=== PATIENT | female | born 2000 | race Caucasian/White ===

== ENCOUNTER → 2021-08-02 16:55 | Outpatient (BNVA) | payer OTHER, SELFPAY | PROVIDERS: Family Provider Family Medicine; PCP Family Medicine; Visit Provider Nurse Practitioner | DX: Z34.90 Encounter for supervision of normal pregnancy, unspecified, unspecified trimester (principal) | CPT/HCPCS: 81025 ==

== ENCOUNTER 2021-08-26 10:29 | Outpatient (CLI) | payer OTHER, MEDICAID, SELFPAY ==
--- NOTE | 2021-08-26 | US_ITS ---
WS: [id number] ULTRASOUND EARLY TECHNIQUE: Transabdominal sonography of the pelvis was performed. Followed by transvaginal sonography to better evaluate the uterus and ovaries. CLINICAL INFORMATION: DATING US LMP: ? Beta hCG: Unknown. COMPARISON: None. FINDINGS: Cervix measures 3.9 cm UTERUS AND GESTATIONAL SAC Intrauterine gestations: Single intrauterine gestation with pole. Gestational sac measures 2.6 cm. Estimated gestational age: 7 weeks 4 days Estimated delivery April 10, 2022 Yolk sac: Present [place] rump length (CRL): 1.3 cm. heart motion: 143 BPM. Subchorionic hemorrhage: None. OVARIES Right ovary: Normal. Left ovary: Normal. FREE FLUID None. US/US OB <=14 wk fetus w transvag IMPRESSION: 1. Single live intrauterine with pole. 2. Estimated gestational age 7 weeks 4 days. 3. Cardiac activity and movement visualized. 4. Normal adnexa.
== END 2021-08-26 10:30 | disposition home or self-care (01) ==
PROVIDERS: PCP Family Medicine; Visit Provider Family Medicine
DX: Z34.01 Encounter for supervision of normal first pregnancy, first trimester (principal); Z3A.01 Less than 8 weeks gestation of pregnancy

== ENCOUNTER → 2021-11-19 15:23 | Outpatient (BNVA) | payer MEDICAID, SELFPAY | PROVIDERS: PCP Family Medicine; Visit Provider Family Medicine | DX: Z34.90 Encounter for supervision of normal pregnancy, unspecified, unspecified trimester (principal) | CPT/HCPCS: 81511 ==

== ENCOUNTER 2021-11-23 13:35 | Outpatient (CLI) | payer MEDICAID, SELFPAY ==
--- NOTE | 2021-11-23 13:46 | US_ITS ---
WS: [id number] OBSTETRICAL ULTRASOUND COMPLETE HISTORY: ANATOMY COMPARISON: 08/26/2021 Single intrauterine gestation in Cephalic presentation. Cervix is Closed and normal length. Cervical length is 3.2 cm. Normal amount of amniotic fluid surrounds the fetus. Placenta: Anterior, no previa or abruption. Placenta grade 1 Heart: 160 BPM. Four chambers are identified. RIGHT and LEFT outflow tracts are unremarkable. Anatomy: Intracranial structures and spine are normal. kidneys are poorly visualized. Pro bably due to early gestational age and maternal body habitus. Stomach and urinary bladder well visual ized. In the midline of the abdomen is a rounded cystic structure without increased vascularity. On s everal of the images this does appear to connect to the umbilical cord and may be a urachal cyst. Abd ominal wall, three-vessel cord and cord insertion site are normal. 4 extremities are present. profile: Unremarkable. Gender: Female. measurements: BPD = 4.7 cm = 20w2d HC = 18.0 cm = 20w3d AC = 14.8 cm = 20w1d FL = 3.5 cm = 20w6d EFW: 354 g. Biometry is internally concordant. AGA by ultrasound: 20w2d MAI by ultrasound: 04/10/2022 US/US OB >= 14 weeks fetus [id number] IMPRESSION: 1. Single intrauterine gestation of 20w2d with an MAI of 04/10/2022. Appropria te growth since the first trimester ultrasound. 2. Midline abdominal cyst measures 8.6 x 8.8 mm. On several of the cine loop i mages this may connect to the umbilicus. There is no increased vascularity. Dif ferential includes urachal cyst, lymphangioma or duplication cyst. No definite connection to the kidneys identified at this time. 3. Neither kidney is well visualized. 4. Recommend further evaluation with maternal- medicine.
== END 2021-11-23 13:36 | disposition home or self-care (01) ==
LOC: RAD 13:38
PROVIDERS: PCP Family Medicine; Visit Provider Family Medicine
DX: Z36.89 Encounter for other specified antenatal screening (principal); Z3A.20 20 weeks gestation of pregnancy
CPT/HCPCS: 76805

== ENCOUNTER → 2021-12-29 10:05 | Outpatient (BNVA) | payer MEDICAID, SELFPAY | PROVIDERS: PCP Family Medicine; Visit Provider Family Medicine | DX: O13.9 Gestational [pregnancy-induced] hypertension without significant proteinuria, unspecified trimester (principal); R03.0 Elevated blood-pressure reading, without diagnosis of hypertension | CPT/HCPCS: 82570; 82950; 84156 ==

== ENCOUNTER 2021-12-30 19:30 | Outpatient (CLI) | payer MEDICAID, SELFPAY ==
[2021-12-30 19:38] VITALS: BP 131/66; PULSE 92
[2021-12-30 19:53] VITALS: BP 131/73; PULSE 96
[2021-12-30 20:01] VITALS: BMI 35.6
[2021-12-30 20:07] VITALS: RESP 15
[2021-12-30 20:08] VITALS: BP 118/65; PULSE 96
[2021-12-30 20:23] VITALS: BP 113/62; PULSE 93
[2021-12-30 20:26] LABS: Protein Urine Neg (Negative); Urine Appearance Clear (CLEAR); Urine Color Yellow (Yellow); pH Urine 7 (5-7)
[2021-12-30 20:31] LABS: Add Urine Culture? No; Amorphous Sediment Urine 1+ /hpf; Bilirubin Urine Neg (Negative); Blood Urine 3+ (Negative); Glucose Urine UA Norm (Normal); Ketones Urine Negative (Negative); Leukocyte Esterase Urine Trace (Negative); Nitrate Urine Negative (Negative); RBC Urine 80-100 /hpf (0-2); Squamous Epithelial Cell Urine 0-4 /hpf (0-5); Urobilinogen Urine Norm (Negative); WBC Urine 0-4 /hpf (0-5)
[2021-12-30 20:38] VITALS: BP 120/64; PULSE 91
== END 2021-12-30 20:55 | disposition home or self-care (01) ==
LOC: OPOB 19:36 → OBGYN 19:37
PROVIDERS: PCP Family Medicine; Visit Provider Family Medicine
DX: O13.2 Gestational [pregnancy-induced] hypertension without significant proteinuria, second trimester (principal); O26.892 Other specified pregnancy related conditions, second trimester; M54.9 Dorsalgia, unspecified; M79.606 Pain in leg, unspecified; Z3A.25 25 weeks gestation of pregnancy
CPT/HCPCS: 81001; 87086; 99211

== ENCOUNTER → 2022-01-05 16:29 | Outpatient (BNVA) | payer MEDICAID, SELFPAY | PROVIDERS: PCP Family Medicine; Visit Provider Family Medicine | DX: R30.0 Dysuria (principal); Z34.00 Encounter for supervision of normal first pregnancy, unspecified trimester; R31.9 Hematuria, unspecified | CPT/HCPCS: 81000 ==

== ENCOUNTER → 2022-01-25 15:12 | Outpatient (BNVA) | payer MEDICAID, SELFPAY | PROVIDERS: PCP Family Medicine; Visit Provider Family Medicine | DX: O13.9 Gestational [pregnancy-induced] hypertension without significant proteinuria, unspecified trimester; Z3A.00 Weeks of gestation of pregnancy not specified | CPT/HCPCS: 80053; 84550; 85025 ==

== ENCOUNTER → 2022-02-19 10:56 | Outpatient (BNVA) | payer MEDICAID, SELFPAY | PROVIDERS: PCP Family Medicine; Visit Provider Family Medicine | DX: O13.9 Gestational [pregnancy-induced] hypertension without significant proteinuria, unspecified trimester (principal) | CPT/HCPCS: 76819 ==

== ENCOUNTER → 2022-02-26 10:48 | Outpatient (BNVA) | payer MEDICAID, SELFPAY | PROVIDERS: PCP Family Medicine; Visit Provider Family Medicine | DX: O35.8XX0 Maternal care for other (suspected) fetal abnormality and damage, not applicable or unspecified (principal) | CPT/HCPCS: 76819 ==

== ENCOUNTER → 2022-03-05 11:06 | Outpatient (BNVA) | payer MEDICAID, SELFPAY | PROVIDERS: PCP Family Medicine; Visit Provider Family Medicine | DX: O28.3 Abnormal ultrasonic finding on antenatal screening of mother (principal) | CPT/HCPCS: 76819 ==

== ENCOUNTER → 2022-03-12 11:15 | Outpatient (BNVA) | payer MEDICAID, SELFPAY | PROVIDERS: PCP Family Medicine; Visit Provider Family Medicine | DX: O13.9 Gestational [pregnancy-induced] hypertension without significant proteinuria, unspecified trimester (principal) | CPT/HCPCS: 76819 ==

== ENCOUNTER 2022-03-16 16:19 | Inpatient (IN) | payer MEDICAID, SELFPAY ==
[2022-03-16] VITALS (16 sets, daily range): BP systolic 117–170; BP diastolic 57–88; PULSE 65–100; RESP 15; TEMP 36.7; BMI 35.4
[2022-03-16 14:09] LABS: Actim Prom Negative
[2022-03-16 17:56] LABS: Basophils % 0.2 %; Eosinophils # 0.1 10^3/uL (0.0-0.8); Eosinophils % 0.6 %; Hematocrit 37.3 % (37.0-47.0); Hemoglobin 12.2 g/dL (11.5-15.3); Lymphocytes # 1.7 10^3/uL (0.8-4.8); Lymphocytes % 13.8 %; Mean Corpuscular HGB Conc 32.7 g/dL (30.0-36.0); Mean Corpuscular Hemoglobin 29.4 pg (28.0-34.0); Mean Corpuscular Volume 89.9 fl (81-99); Mean Platelet Volume 11.1 fL (7.4-10.4); Monocytes # 0.4 10^3/uL (0.2-0.9); Monocytes % 3.4 %; Neutrophils # 10.16 10^3/uL (1.8-7.7); Neutrophils % 81.5 %; Nucleated Red Blood Cells % 0 %; Platelet Count 139 10^3/cmm (130-400); Red Blood Count 4.15 10^6/uL (4.1-5.3); Red Cell Distribution Width 14.4 % (12.1-15.1); White Blood Count 12.5 10^3/uL (4.0-10.0)
[2022-03-16 18:00] LABS: Slide Review Slide Review Perform
[2022-03-16] MEDS: miSOPROStol 100 mcg tablet 25 MCG VAGINAL (18:38)
[2022-03-16] MEDS: dextrose 5%-lactated ringers 1,000 ML 125 ML IV (18:38)
--- NOTE | 2022-03-16 18:45 | P.HP_ITS ---
Providers/Chief Complaint Admitting Physician: Michele Bolton MD Primary Care Provider: Antwon Grigsby MD Chief Complaint: Decreased JO History of Present Illness Nirali Spicer is a 21 year old @ 36.1 wks by 7 wk US inconsistent with LMP. Preg c/b h/o genital herpes in 2020, h/o cHTN, vaping in early TM now quit, mild anemia, left hydronephrosis - mild, now with oligohydramnios. The patient presented to labor and delivery triage on the afternoon of 022 secondary to having an ultrasound that showed an JO of 4.3. The rest of the biophysical profile was 8 out of 8. The NST has been reactive. Nitrazine and actin PROM were negative. We discussed the findings in detail and the recommendations for induction of labor after 36 weeks gestation when the JO is below 5. The patient was in agreement with proceeding for induction of labor. Review of Systems Narrative: The patient denies any chest pains, shortness of breath, diarrhea, constipation, leaks fluid, vaginal bleeding, dysuria, fevers, vaginal lesions. Medications/Allergies Home Medications Medication Instructions Recorded Confirmed Last Taken Type acetaminophen 325 mg tablet 500 mg PO QID 12/30/21 03/02/22 12/30/21 18:15 History (Tylenol) prenat.vits,justo,[id number] 1 tab PO DAILY 12/30/21 03/02/22 12/29/21 History acyclovir 400 mg tablet 400 mg PO TID #90 tabs 02/24/22 03/02/22 Unknown Rx Allergies Allergy/AdvReac Type Severity Reaction Status Date / Time latex Allergy ALGY-Anaphy Verified 12/30/21 20:11 laxis PFSH Acute PFSH: Social History Smoking and tobacco status: current every day smoker Female Reproductive History: : 1 Vitals/I&O/Wt Last Vital Signs Temp 98.0 F 03/16/22 13:15 Pulse 96 03/16/22 17:56 Resp 15 03/16/22 13:15 BP 132/85 03/16/22 17:56 O2 Del Method 03/16/22 17:02 Weight last 48 hrs Weight 213 lb Physical Exam Narrative: General: Alert and oriented x3 Eyes: Pupils equal round and reactive to light and accommodation Mouth: Mucous membranes moist, pharynx non-erythematous Cardiac: Regular rate and rhythm without murmurs Lungs: Clear to auscultation bilaterally without wheezes, crackles or rhonchi Abdomen: Soft, non-tender, fundus consistent with gestational age Genitalia: No vaginal lesions noted. GBS swab obtained. Extremities: Trace edema in the bilateral lower extremities Data 03/16/22 17:40 A&P Assessment and plan (1) Supervision of normal intrauterine in primigravida: Due to the oligohydramnios, we will plan to start the patient on Cytotec for induction of labor. We discussed in length the potential benefits and risks of delivery now versus expectant management and the patient is in agreement to proceed with induction using Cytotec. The patient was advised of the possibility of complications including breathing difficulties, feeding problems, bilirubin issues, temperature regulation issues, etc. She is in agreement at this time. The patient is GBS unknown, so we will start ampicillin for prophylaxis. GBS culture was obtained. No vaginal lesions were noted, so proceeded with vaginal delivery should be safe at this time. The patient has been on acyclovir for prophylactic treatment. The patient's blood pressure is currently stable. All questions were answered. (2) Oligohydramnios: (3) Gestational hypertension: Attestations Medical Necessity Statement*: The patient will be here for greater than 2 midnights due to routine intrapartum and management of labor and delivery. Coding Level of Care Code Acute Sales Incentive Analyst for [facility] Diagnoses Supervision of normal intrauterine in primigravida Z34.00 Oligohydramnios O41.00X0 Gestational hypertension O13.9
[2022-03-16] MEDS: ampicillin 2,000 MG in sodium chloride 0.9% (plus) 50 ML 100 MG IV (19:00)
[2022-03-16] MEDS: alum-mag-hydroxide-sime 30 mL UDC PO (19:01)
[2022-03-16] MEDS: ampicillin 1,000 MG in sodium chloride 0.9% (plus) 50 ML 100 MG IV (22:56)
[2022-03-17] VITALS (60 sets, daily range): BP systolic 114–149; BP diastolic 55–92; PULSE 60–109; RESP 15–20; TEMP 36.1–37.1; O2SAT 86–100
[2022-03-17] MEDS: acetaminophen 325 mg Tablet 650 MG PO ×2 (00:16→06:36)
[2022-03-17] MEDS: hyDROXYzine 25 mg Capsule 50 MG PO (00:17)
[2022-03-17] MEDS: miSOPROStol 100 mcg tablet 25 MCG VAGINAL ×2 (02:20→06:27)
[2022-03-17] MEDS: ampicillin 1,000 MG in sodium chloride 0.9% (plus) 50 ML 100 MG IV ×4 (03:04→15:04)
[2022-03-17] MEDS: ondansetron 2 mg/ML SDV 2 mL 4 MG IVP ×2 (06:36→11:26)
--- NOTE | 2022-03-17 07:41 | P.PN_ITS ---
Subjective Subjective: The patient is feeling well today. Her contractions are uncomfortable at times. The patient has had some minimal bloody show. She received her third dose of Cytotec at approximately 6:30 AM today. The patient denies any leaking of fluid. Vitals/I&O/Wt Last Vital Signs Temp 97.3 F L 03/17/22 05:51 Pulse 75 03/17/22 05:51 Resp 15 03/16/22 13:15 BP 125/77 03/17/22 05:51 O2 Del Method 03/16/22 17:02 03/16/22 03/17/22 03/17/22 22:59 06:59 14:59 Intake Total 50 / 50 833.333 / 883.333 Balance 50 / 50 833.333 / 883.333 Weight last 48 hrs Weight 213 lb Physical Exam Narrative: General: Alert and oriented x3 Cardiac: Regular rate and rhythm without murmurs Lungs: Clear to auscultation bilaterally without wheezes, crackles or rhonchi Abdomen: Soft, non-tender, fundus consistent with gestational age Extremities: Trace edema in the bilateral lower extremities Data 03/16/22 17:40 A&P Assessment and plan (1) Oligohydramnios: (2) Supervision of normal intrauterine in primigravida: The patient is doing well at this time. Continue with induction of labor. After the next dose we will evaluate to see if Pitocin can be added. Currently heart tones are in the mid 130s with moderate variability and good accelerations with a category 1 tracing. (3) Gestational hypertension: Attestations Medical Necessity Statement*: The patient will be here for greater than 2 midnights due to routine intrapartum and management of labor and delivery. Coding Level of Care Code Acute Thermal Engineer for [facility] Diagnoses Oligohydramnios O41.00X0 Supervision of normal intrauterine in primigravida Z34.00 Gestational hypertension O13.9
[2022-03-17] MEDS: oxytocin 30 UNIT/500 ML BAG 4 UNIT IV (11:23)
[2022-03-17] MEDS: butorphanol 2 mg/mL SDV 1 mL 1 MG IVP (11:26)
[2022-03-17] MEDS: lactated ringers 1,000 ML 999 ML IV (13:24)
--- NOTE | 2022-03-17 13:59 | ANES.PREANE2 ---
Pre-Anesthetic Assessment Height/Weight: Height 1.65 m Weight 96.615 kg Temp Pulse Resp BP Pulse Ox O2 Del Method 97.0 F L 77 15 116/71 99 03/17/22 12:24 03/17/22 13:53 03/16/22 13:15 03/17/22 13:53 03/17/22 13:52 03/16/22 17:02 Familial anesthetic complications: none Was Beta Alexandru taken within 24 hours: N/A Was Clonidine taken within 24 hours: N/A Social No alcohol and No tobacco Exam alert, oriented x 3, clear to auscultation bilaterally and regular rate & rhythm Airway Submandibular: within normal limits Cervical ROM: within normal limits Mallampati: Class II Dentition: full Musc/skel scoliosis Anesthetic Plan ASA status: 2 Anesthesia: Regional (specify below) (Labor epidural) Medications/Allergies Home Medications Medication Instructions Recorded Confirmed Last Taken Type acetaminophen 325 mg tablet 500 mg PO QID 12/30/21 03/02/22 12/30/21 18:15 History (Tylenol) prenat.vits,justo,[id number] 1 tab PO DAILY 12/30/21 03/02/22 12/29/21 History acyclovir 400 mg tablet 400 mg PO TID #90 tabs 02/24/22 03/02/22 Unknown Rx Allergies Allergy/AdvReac Type Severity Reaction Status Date / Time latex Allergy ALGY-Anaphy Verified 12/30/21 20:11 laxis Current Medications Generic Name Dose Route Start Last Admin Trade Name Freq PRN Reason Stop Dose Admin Acetaminophen 650 mg 03/16/22 16:20 03/17/22 06:36 Acetaminophen 325 Mg Tablet PO 650 mg Q6H PRN Administration Mild pain or temp > 100.4 Al Hydrox/Mg Hydrox/Simethicone 30 ml 03/16/22 16:20 03/16/22 19:01 Ilco-Oix-Cggxzgwfl-Alex 30 Ml Udc PO 30 ml Q4H PRN Administration INDIGESTION Butorphanol Tartrate 1 mg 03/16/22 16:27 03/17/22 11:26 Butorphanol 2 Mg/Ml Sdv 1 Ml IVP 1 mg Q2H PRN Administration PAIN Hydroxyzine Pamoate 50 mg 03/16/22 16:20 03/17/22 00:17 Hydroxyzine 25 Mg Capsule PO 50 mg QID PRN Administration sleep, agitation or itching Dextrose/Lactated Ringer's 1,000 mls @ 125 mls/hr 03/16/22 16:30 03/17/22 00:30 Dextrose 5%-Lactated Ringers IV 0 mls/hr .Q8H NICOLE Infusion Ampicillin Sodium 1,000 mg/ 50 mls @ 100 mls/hr 03/16/22 22:45 03/17/22 10:21 Sodium Chloride IV 100 mls/hr Q4H NICOLE Administration Protocol Oxytocin 30 unit in 500 mls @ 4 mls/hr 03/17/22 11:00 03/17/22 12:39 Pitocin IV 12 milliunit/min .Q24H NICOLE 12 mls/hr Titration Protocol 4 MILLIUNIT/MIN Ropivacaine 200 mg in 100 mls @ 13 mls/hr 03/17/22 13:00 03/17/22 13:24 Naropin Premix EPIDURAL 13 mls/hr .Q7H42M NICOLE Administration Lactated Ringer's 1,000 mls @ 999 mls/hr 03/17/22 12:54 03/17/22 13:24 Lactated Ringers IV 999 mls/hr .Q1H1M PRN Administration See label comments Misoprostol 25 mcg 03/17/22 06:21 03/17/22 06:27 Misoprostol 100 Mcg Tablet VAGINAL 25 mcg ONCE PRN Administration LABOR INDUCTION Ondansetron HCl 4 mg 03/16/22 16:20 03/17/22 11:26 Ondansetron 2 Mg/Ml Sdv 2 Ml IVP 4 mg Q4H PRN Administration NAUSEA AND VOMITING PFSH Anesthesia Social History (Updated 03/16/22 @ 18:56 by Michele Bolton MD) Smoking and tobacco status: current every day smoker Female Reproductive History : 1 Data Anesthesia 03/16/22 17:40 Short CBC 03/16/22 Range/Units 17:40 WBC 12.5 H (4.0-10.0) 10^3/uL Hgb 12.2 (11.5-15.3) g/dL Hct 37.3 (37.0-47.0) % MCV 89.9 (81-99) fl Plt Count 139 (130-400) 10^3/cmm Neut % (Auto) 81.5 % Neut # (Auto) 10.16 H (1.8-7.7) 10^3/uL Cardiac Studies: No Data to Display Anesthesia Procedures Epidural Time Out Performed: Yes Consents Signed: Procedure Consent Consent: requested by attending/covering physician, from patient, risks and benefits reviewed and patient agrees to proceed Lumbar Level: L3-L4 Epidural position: sitting Epidural procedure: sterile prep of area, 1% lidocaine to numb the area, 18 g needle, neg for paresthesia, test dose given, placed PCEA, no systemic response, sterile dressing applied and 0.2% Ropiavacaine @ mls/hr (13) Additional Comments: Made two passes (could not thread cath on first, but was able to bolus 5mls of 2% lido), AIMEE at 4cm, cath at 10cm
[2022-03-17] MEDS: lidocaine 2% INJ 20 mL INJECTION (15:44)
--- NOTE | 2022-03-17 16:16 | P.PCNOB_ITS ---
Delivery Note: Date of delivery: March 17, 2022 Pre-delivery diagnoses: 1. Intrauterine at 36.2 weeks gestation 2. Genital herpes on acyclovir without active lesions 3. History of chronic hypertension 4. Vaping in early first trimester 5. Mild anemia 6. Oligohydramnios 7. Left hydronephrosis Post-delivery diagnoses: 1. Intrauterine status post spontaneous vaginal delivery at 36.2 weeks gestation 2. Genital herpes on acyclovir without active lesions 3. History of chronic hypertension 4. Vaping in early first trimester 5. Mild anemia 6. Oligohydramnios 7. Left hydronephrosis Procedure: Spontaneous vaginal delivery Op report anesthesia: Epidural Delivering Physician: Michele Bolton MD Estimated blood loss (mL): 100 Pre-Delivery Course: Nirali Spicer is a 21 year old @ 36.2 wks by 7 wk US inconsistent with LMP. Preg c/b h/o genital herpes in 2020 on acyclovir, h/o cHTN, vaping in early TM now quit, mild anemia, left hydronephrosis - mild, now with oligohydramnios. The patient presented to labor and delivery triage on the afternoon of 03/16/2022 secondary to having an ultrasound that showed an JO of 4.3.? The rest of the biophysical profile was 8 out of 8.? The NST has been reactive.? Nitrazine and actin PROM were negative.? We discussed the findings in detail and the recommendations for induction of labor after 36 weeks gestation when the JO is below 5.? The patient was in agreement with proceeding for induction of labor. The patient was 1 cm dilated upon presentation. She was given Cytotec x3 doses. The first dose was started at approximately 6:30 PM on 03/16/2022. The patient made minimal change with the Cytotec, however did make some effacement change and the head descended well. By the late morning of 03/17/2022, IV Pitocin was started. SROM took place at 12:50 PM on 03/17/2022. Clear fluid was noted. The patient had significant pain after this and a laboring epidural was placed. The patient had improved pain control with this, however continued to have pain. There were some intermittent decelerations that were felt to be early in nature with occasional late decelerations. For this reason the Pitocin was first cut in half, and then stopped. The patient received a fluid bolus. The patient made rapid change from that point on and was complete by 1527 on 03/17/2022. Delivery: The patient began pushing at 1530 on 03/17/2022. The patient pushed well and the infant delivered in the OA position at 1535 on 03/17/2022. There was no nuchal cord. The left shoulder was anterior shoulder and it delivered with ease. Rest of the infant delivered without complication. The infant's mouth and nose were bulb suctioned by myself and the was placed on the mother's chest where the nurses were waiting to care for her. The umbilical cord was noted to be short. The cord was clamped after approximately 1 minute and cut by the infant's maternal grandmother. Cord blood was obtained. The cord was then drained of blood and traction was placed on the umbilical cord. Uterine massage was carried out and the placenta delivered at 1540 on 03/17/2022 without complication. The placenta was noted to be intact with a central umbilical cord insertion site. The cervix was inspected and no lacerations were noted. The vaginal wall was inspected and a left vaginal wall second-degree laceration was noted. A first-degree vaginal wall laceration was noted inferiorly and these were both repaired using 3-0 Vicryl in a running fashion. 1% lidocaine was used for anesthesia. The patient tolerated this well. Rectal exam was done and no sutures were noted in the rectal vault. Currently both the mother and are doing well. History History History 1 Term 0 1 Miscarriages/Ectopic 0 Living Children 1 Past Pregnancies Del. Date GA/Weeks Outcome Route Wt Inf Gender Labor Lgth Comp. Anesth esia Location 03/17/22 36 live - Vaginal 5 lb 15 oz Female 20 regional [facility] Delivery Date: 03/17/22 Last Updated by: Michele Bolton MD Induced for oligohydramnios A&P Assessment and plan (1) Spontaneous vaginal delivery: Coding Level of Care Code Acute Space Systems Operations Manager for [facility] Diagnoses Spontaneous vaginal delivery O80
[2022-03-17] MEDS: dextrose 5%-lactated ringers 1,000 ML 125 ML IV (17:11)
[2022-03-17] MEDS: ibuprofen 800 mg tablet PO (22:53)
[2022-03-18 01:35] VITALS: BP 147/64; PULSE 67; RESP 15; TEMP 36.6; O2SAT 98
[2022-03-18 04:39] LABS: Hematocrit 34.6 % (37.0-47.0); Hemoglobin 11.4 g/dL (11.5-15.3); Mean Corpuscular HGB Conc 32.9 g/dL (30.0-36.0); Mean Corpuscular Hemoglobin 29.4 pg (28.0-34.0); Mean Corpuscular Volume 89.2 fl (81-99); Mean Platelet Volume 9.6 fL (7.4-10.4); Platelet Count 209 10^3/cmm (130-400); Red Blood Count 3.88 10^6/uL (4.1-5.3); Red Cell Distribution Width 13.9 % (12.1-15.1); White Blood Count 14.7 10^3/uL (4.0-10.0)
--- NOTE | 2022-03-18 05:09 | P.PN_ITS ---
Subjective Subjective: The patient is doing well at this time. Her bleeding is decreasing well. Her pain is well controlled. She is ambulating, voiding, passing gas and tolerating food by mouth. She has no concerns at this time. Vitals/I&O/Wt Last Vital Signs Temp 97.8 F 03/18/22 01:35 Pulse 67 03/18/22 01:35 Resp 15 03/18/22 01:35 BP 147/64 03/18/22 01:35 Pulse Ox 98 03/18/22 01:35 O2 Del Method 03/18/22 01:35 O2 Flow Rate 10 03/17/22 14:48 03/17/22 03/17/22 03/18/22 14:59 22:59 06:59 Intake Total 1131.600 / 1131.600 518.400 / 1650.000 Balance 1131.600 / 1131.600 518.400 / 1650.000 Weight last 48 hrs Weight 213 lb Physical Exam Narrative: General: Alert and oriented x3 Cardiac: Regular rate and rhythm without murmurs Lungs: Clear to auscultation bilaterally without wheezes, crackles or rhonchi Extremities: Trace edema in the bilateral lower extremities Urinary Catheter Management: Latex Free: Cath Placed During This Visit: yes, but has since been removed by the nurse Reason for Continuing Indwelling Catheter: Other Urinary Catheter Date of Insertion: 03/17/22 Urinary Catheter Time of Insertion: 14:00 Date Urinary Catheter Removed: 03/17/22 Time Urinary Catheter Discontinued: 15:30 Data 03/18/22 04:24 A&P Assessment and plan (1) Spontaneous vaginal delivery: Plan The patient is doing very well . She has had a few blood pressures in the 140s, however they are typically in the 130s systolic or less. The patient is not having any symptoms consistent with preeclampsia. We will continue with routine management and plan for discharge home tomorrow if things are going well. All questions were answered. Attestations Medical Necessity Statement*: The patient will be here for greater than 2 midnights due to routine intrapartum and management of labor and delivery. Coding Level of Care Code Acute Wharf Tender Head for [facility] Diagnoses Spontaneous vaginal delivery O80
[2022-03-18 05:22] VITALS: BP 147/89; PULSE 83; RESP 15; TEMP 36.6; O2SAT 97
[2022-03-18] MEDS: prenatal vitamin Capsule 1 CAP PO (09:04)
[2022-03-18] MEDS: docusate sodium 100 mg Capsule PO ×2 (09:04→21:08)
[2022-03-18] MEDS: ibuprofen 800 mg tablet PO ×3 (09:04→21:08)
[2022-03-18 10:12] VITALS: BP 116/73; PULSE 82; RESP 15; TEMP 36.8
--- NOTE | 2022-03-18 13:09 | ANE.PACU2 ---
Inpatient post-anesthesia follow up: Airway intact: Yes Vital signs: Temperature 98.3 F Pulse Rate 82 Respiratory Rate 15 Blood Pressure 116/73 Pulse Oximetry 97 Oxygen Delivery Me thod Room Air Oxygen Flow Rate 10 Fraction of Inspir ed Oxygen Hydration adequate: Yes Nausea and vomiting: No Pain level: 2 Mental status: Baseline
[2022-03-18 16:00] VITALS: BP 110/70; PULSE 79; RESP 14; TEMP 37
[2022-03-18] MEDS: lanolin oint 7 gm 1 APPLIC TOPICAL (19:54)
[2022-03-18 22:00] VITALS: BP 128/86; PULSE 79; RESP 14; TEMP 37.2
[2022-03-19 05:00] VITALS: BP 144/84; PULSE 86; RESP 15
--- NOTE | 2022-03-19 08:15 | PM.DCS ---
Discharge Providers Date of Admission: 03/16/22 16:19 Date of Discharge: March 19, 2022 Attending Provider at Admission: Michele Bolton MD Attending Provider at Discharge: Michele Bolton MD Primary Care Provider: Antwon Grigsby MD Diagnoses at Discharge Discharge Diagnosis (1) Spontaneous vaginal delivery: Status: Acute Other Information Additional DC diagnoses/information: 1.? Intrauterine status post spontaneous vaginal delivery at 36.2 weeks gestation 2.? Genital herpes on acyclovir without active lesions 3.? History of chronic hypertension 4.? Vaping in early first trimester 5.? Mild anemia 6.? Oligohydramnios 7. Delivery of healthy infant female weighing 5 pounds 15 ounces with Apgars of 9 and 9 Reason for Visit Reason for Visit: Decreased JO Brief History: Nirali Spicer is a 21 year old @ 36.2 wks by 7 wk US inconsistent with LMP. Preg c/b h/o genital herpes in 2020 on acyclovir, h/o cHTN, vaping in early TM now quit, mild anemia, left hydronephrosis - mild, now with oligohydramnios. The patient presented to labor and delivery triage on the afternoon of 03/16/2022 secondary to having an ultrasound that showed an JO of 4.3.? The rest of the biophysical profile was 8 out of 8.? The NST has been reactive.? Nitrazine and actin PROM were negative.? We discussed the findings in detail and the recommendations for induction of labor after 36 weeks gestation when the JO is below 5.? The patient was in agreement with proceeding for induction of labor. Hospital Course Hospital Course The patient was 1 cm dilated upon presentation.? She was given Cytotec x3 doses.? The first dose was started at approximately 6:30 PM on 03/16/2022.? The patient made minimal change with the Cytotec, however did make some effacement change and the head descended well.? By the late morning of 03/17/2022, IV Pitocin was started.? SROM took place at 12:50 PM on 03/17/2022.? Clear fluid was noted.? The patient had significant pain after this and a laboring epidural was placed.? The patient had improved pain control with this, however continued to have pain.? There were some intermittent decelerations that were felt to be early in nature with occasional late decelerations.? For this reason the Pitocin was first cut in half, and then stopped.? The patient received a fluid bolus.? The patient made rapid change from that point on and was complete by 1527 on 03/17/2022. The patient began pushing at 1530 on 03/17/2022.? The patient pushed well and the delivered in the OA position at 1535 on 03/17/2022.? There was no nuchal cord.? The left shoulder was anterior shoulder and it delivered with ease.? Rest of the delivered without complication.? The 's mouth and nose were bulb suctioned by myself and the infant was placed on the mother's chest where the nurses were waiting to care for her.? The umbilical cord was noted to be short.? The cord was clamped after approximately 1 minute and cut by the 's maternal grandmother.? Cord blood was obtained.? The cord was then drained of blood and traction was placed on the umbilical cord.? Uterine massage was carried out and the placenta delivered at 1540 on 03/17/2022 without complication.? The placenta was noted to be intact with a central umbilical cord insertion site.? The cervix was inspected and no lacerations were noted.? The vaginal wall was inspected and a left vaginal wall second-degree laceration was noted.? A first-degree vaginal wall laceration was noted inferiorly and these were both repaired using 3-0 Vicryl in a running fashion.? 1% lidocaine was used for anesthesia.? The patient tolerated this well.? the patient has done well. Her bleeding is decreasing well. She is ambulating, voiding, passing gas and tolerating food by mouth. Her pain is well controlled. Routine discharge instructions were discussed and the patient will plan to follow-up with me at 6 weeks . Physical Exam Narrative: General: Alert and oriented x3 Cardiac: Regular rate and rhythm without murmurs Lungs: Clear to auscultation bilaterally without wheezes, crackles or rhonchi Extremities: +1 pitting edema in the bilateral lower extremities Urinary Catheter Management: Latex Free: Cath Placed During This Visit: yes, but has since been removed by the nurse Reason for Continuing Indwelling Catheter: Other Urinary Catheter Date of Insertion: 03/17/22 Urinary Catheter Time of Insertion: 14:00 Date Urinary Catheter Removed: 03/17/22 Time Urinary Catheter Discontinued: 15:30 Discharge Data Studies Completed and Pending Laboratory Results WBC 14.7 10^3/uL (4.0-10.0) H 03/18/22 04:24 RBC 3.88 10^6/uL (4.1-5.3) L 03/18/22 04:24 Hgb 11.4 g/dL (11.5-15.3) L 03/18/22 04:24 Hct 34.6 % (37.0-47.0) L 03/18/22 04:24 MCV 89.2 fl (81-99) 03/18/22 04:24 MCH 29.4 pg (28.0-34.0) 03/18/22 04:24 MCHC 32.9 g/dL (30.0-36.0) 03/18/22 04:24 RDW 13.9 % (12.1-15.1) 03/18/22 04:24 Plt Count 209 10^3/cmm (130-400) 03/18/22 04:24 MPV 9.6 fL (7.4-10.4) 03/18/22 04:24 Neut % (Auto) 81.5 % 03/16/22 17:40 Lymph % (Auto) 13.8 % 03/16/22 17:40 Freeborn % (Auto) 3.4 % 03/16/22 17:40 Eos % (Auto) 0.6 % 03/16/22 17:40 Baso % (Auto) 0.2 % 03/16/22 17:40 Neut # (Auto) 10.16 10^3/uL (1.8-7.7) H 03/16/22 17:40 Lymph # (Auto) 1.7 10^3/uL (0.8-4.8) 03/16/22 17:40 Freeborn # (Auto) 0.4 10^3/uL (0.2-0.9) 03/16/22 17:40 Eos # (Auto) 0.1 10^3/uL (0.0-0.8) 03/16/22 17:40 Baso # (Auto) 0.0 10^3/uL (0.0-0.1) 03/16/22 17:40 Nucleated RBC % (auto) 0 % 03/16/22 17:40 Nucleated RBCs # 0.0 /100WBC 03/16/22 17:40 Insulin-like GF I Negative 03/16/22 13:45 Vitals Last Vital Signs Temp 98.9 F 03/18/22 22:00 Pulse 86 03/19/22 05:00 Resp 15 03/19/22 05:00 BP 144/84 03/19/22 05:00 Pulse Ox 97 03/18/22 05:22 O2 Del Method 03/18/22 05:22 O2 Flow Rate 10 03/17/22 14:48 Discharge Plan Discharge Patient Disposition: Home Condition: Good Prescriptions: New ibuprofen 800 mg Tablet 800 mg PO TID Qty: 30 0RF Continued Vitamin Tablet 1 tab PO DAILY Discontinued Fluarix Quad [id number] (PF) 60 mcg (15 mcg x 4)/0.5 mL syringe 0.5 ml IM ONCE Qty: 0.5 0RF acyclovir 400 mg tablet 400 mg PO TID Qty: 90 3RF Tylenol 325 mg Tablet 500 mg PO QID Discharge Orders: Discharge Order (Routine); Ordered 03/19/22 Ordered By: Michele Bolton Referrals: Michele Bolton MD [Physician] - 6 Weeks Discharge Diet: Regular Discharge Activity: Increase activity as tolerated Patient Instructions: Opioid Safety Activity Restrictions/Additional Instructions: Nothing per vagina for 6 weeks. Showers are preferred over baths for the first 6 weeks to decrease risk for infection. Discharge Attestations Time Spent in Discharge Care*: greater than 30 min Quality Metrics Clinical Quality Measures [ No reported AMI, CVA or VTE this stay] Coding Level of Care Code Acute Chg FW DC note Diagnoses Spontaneous vaginal delivery O80
[2022-03-19 09:23] VITALS: BP 130/83; PULSE 76; RESP 18; TEMP 36.6
[2022-03-19] MEDS: prenatal vitamin Capsule 1 CAP PO (09:26)
[2022-03-19] MEDS: ibuprofen 800 mg tablet PO (09:26)
[2022-03-19] MEDS: docusate sodium 100 mg Capsule PO (09:27)
--- NOTE | 2022-03-19 10:15 | PC.NURSE ---
Mother of patient came out to the nurses desk to ask if the patient had notified us of the shadow/ black spot she is seeing in her right eye. Patient had not notified any nurse of this symptom. Patient stated she had not told anyone because she has been so tired she didn't think anything of it. Patient stated she thought it was her hair at one point and she tried to move it out of the way and then realized it was a shadow in her eye. Patient stated it started after delivery. Pupils equal and reactive. Patient able to see my finger in all areas of her peripheral vision. Patient stated she can still see, she just feels like there is a shadow. Patient denies any nausea, vomiting, or headaches. Doctor notified of symptoms and nurse reviewed all vital signs with him. He told me to educated her on things to watch for and allow her to be discharged home.
[2022-03-19 12:44] VITALS: BP 136/84; PULSE 67; RESP 18; TEMP 36.7
--- NOTE | 2022-03-19 12:45 | PC.NURSE ---
Patient educated to contact her doctor or return to the ER if the shadow/ black spot in her right eye becomes worse or grows, or if any new symptoms occur like nausea, vomiting, persistent headache, or high BP. Patient verbalized an understanding.
[2022-03-19 12:58] VITALS: BP 136/84; PULSE 67; RESP 18; TEMP 36.7
== END 2022-03-19 12:55 | disposition home or self-care (01) | DRG 806 ==
LOC: OPOB 16:19 → OBGYN 16:19
PROVIDERS: Absent Provider Family Medicine; Admitting Provider Family Medicine; PCP Family Medicine; Visit Provider Family Medicine
DX: O41.03X0 Oligohydramnios, third trimester, not applicable or unspecified (principal); O98.32 Other infections with a predominantly sexual mode of transmission complicating childbirth; Z37.0 Single live birth; Z3A.36 36 weeks gestation of pregnancy; O16.4 Unspecified maternal hypertension, complicating childbirth; O99.334 Smoking (tobacco) complicating childbirth; F17.291 Nicotine dependence, other tobacco product, in remission; O99.02 Anemia complicating childbirth; D64.9 Anemia, unspecified; O69.3XX0 Labor and delivery complicated by short cord, not applicable or unspecified; O76 Abnormality in fetal heart rate and rhythm complicating labor and delivery; O70.1 Second degree perineal laceration during delivery; A60.00 Herpesviral infection of urogenital system, unspecified
CPT/HCPCS: 36415; 51702; 59025; 59409; 76816; 76819; 84112; 85025; 85027; 87081; 96374; 96376; 99211; J0290; J0595; J2405; J2590; J2795; J7120; J7121

== ENCOUNTER → 2022-06-02 12:10 | Outpatient (BNVA) | payer MEDICAID, SELFPAY | PROVIDERS: PCP Family Medicine; Visit Provider Family Medicine | DX: R53.81 Other malaise (principal); R53.83 Other fatigue | CPT/HCPCS: 84439; 84443 ==

== ENCOUNTER → 2023-01-06 11:05 | Outpatient (BNVA) | payer MEDICAID, SELFPAY | PROVIDERS: PCP Family Medicine; Visit Provider Family Medicine | DX: R19.7 Diarrhea, unspecified (principal) | CPT/HCPCS: 83630; 87177; 87209 ==

== ENCOUNTER → 2023-01-24 14:11 | Outpatient (BNVA) | payer MEDICAID, SELFPAY | PROVIDERS: PCP Family Medicine; Visit Provider Family Medicine | DX: Z51.81 Encounter for therapeutic drug level monitoring (principal); Z13.1 Encounter for screening for diabetes mellitus; E03.9 Hypothyroidism, unspecified; R25.2 Cramp and spasm; R00.2 Palpitations; R19.7 Diarrhea, unspecified; F41.8 Other specified anxiety disorders; L73.9 Follicular disorder, unspecified | CPT/HCPCS: 80053; 82533; 83036; 83735; 84443; 85025; 86141 ==

== ENCOUNTER 2023-04-13 13:05 | Outpatient (CLI) | payer MEDICAID, SELFPAY ==
[2023-04-13 13:45] LABS: Total Volume Urine 900 ml
[2023-04-13 13:51] LABS: Estmated Average Glucose 103; Hemoglobin A1C 5.2 % (4.0-6.0)
[2023-04-13 13:59] LABS: Alanine Aminotransferase 19 U/L (0-33); Albumin Level 4.7 g/dL (3.5-5.2); Alkaline Phosphatase 74 U/L (35-105); Anion Gap 14.9 (5-19); Aspartate Amino Transferase 15 U/L (0-32); Blood Urea Nitrogen 10 mg/dL (6-20); Calcium 9.7 mg/dL (8.5-10.5); Carbon Dioxide 24 mmol/L (22-29); Chloride 102 mmol/L (98-107); Free T4 Free Thyroxine 0.75 ng/dL (0.82-1.77); Globulin 3.2 g/dL (1.3-4.6); Glomerular Filtration Rate 103.7 mL/min (90-130); Glucose 104 mg/dL (65-115); Osmolality Calculated 283 mOsm/kg (285-295); Potassium 3.9 mmol/L (3.5-5.1); Sodium 137 mmol/L (136-145); Thyroid Stimulating Hormone 1.79 uIU/mL (0.27-4.20); Total Bilirubin 0.2 mg/dL (0.15-1.2); Total Protein 7.9 g/dL (6.6-8.7)
[2023-04-13 14:02] LABS: Urine Creatinine 126 mg/dL (28-217)
[2023-04-14 09:05] LABS: T3 Total 135 ng/dL (76-181)
[2023-04-15 07:45] LABS: Thyroglobulin AB <1 IU/mL (< or = 1); Thyroid Peroxidase Antobodies 1 IU/mL (<9)
[2023-04-18 00:24] LABS: Calculated Total (E+NE) 22 mcg/24 h (26-121)
[2023-04-19 12:39] LABS: IGF1 LC/MS 379 ng/mL (83-456); Z Score (Female) 1.5 SD (-2.0 - +2.0)
[2023-04-21 13:20] LABS: Free Cortisol Urine 9.4 mcg/24 h (4.0-50.0); Total Urine 900 mL; Urine Creatinine 1.05 g/24 h (0.50-2.15)
== END 2023-04-13 13:06 | disposition home or self-care (01) ==
LOC: LAB 13:06
PROVIDERS: PCP Internal Medicine; Visit Provider Internal Medicine
DX: R61 Generalized hyperhidrosis (principal); R00.2 Palpitations; Z13.1 Encounter for screening for diabetes mellitus; R53.81 Other malaise; R53.83 Other fatigue; R03.0 Elevated blood-pressure reading, without diagnosis of hypertension
CPT/HCPCS: 36415; 80053; 82384; 82530; 82570; 83036; 83516; 84305; 84439; 84443; 84480; 86376; 86800

== ENCOUNTER 2023-06-07 11:35 | Outpatient (CLI) | payer MEDICAID, SELFPAY ==
[2023-06-07 12:48] LABS: Free T4 Free Thyroxine 0.91 ng/dL (0.82-1.77); Thyroid Stimulating Hormone 0.47 uIU/mL (0.27-4.20)
== END 2023-06-07 11:36 | disposition home or self-care (01) ==
LOC: LAB 11:35
PROVIDERS: PCP Internal Medicine; Visit Provider Internal Medicine
DX: R61 Generalized hyperhidrosis (principal); F41.8 Other specified anxiety disorders; R53.81 Other malaise; R53.83 Other fatigue
CPT/HCPCS: 36415; 84439; 84443

== ENCOUNTER 2024-06-15 17:35 | Outpatient (CLI) | payer MEDICAID, SELFPAY ==
[2024-06-15 18:35] LABS: Free T4 Free Thyroxine 0.92 ng/dL (0.82-1.77); Thyroid Stimulating Hormone 2.93 uIU/mL (0.27-4.20)
== END 2024-06-15 17:36 | disposition home or self-care (01) ==
PROVIDERS: Internal Medicine; PCP Internal Medicine; Visit Provider Internal Medicine
DX: E05.90 Thyrotoxicosis, unspecified without thyrotoxic crisis or storm (principal)
CPT/HCPCS: 36415; 84439; 84443; 84480

== ENCOUNTER 2024-09-07 13:50 | Outpatient (CLI) | payer MEDICAID, SELFPAY ==
[2024-09-07 14:44] LABS: Free T4 Free Thyroxine 1.09 ng/dL (0.82-1.77); Thyroid Stimulating Hormone 1.46 uIU/mL (0.27-4.20)
== END 2024-09-07 13:51 | disposition home or self-care (01) ==
LOC: LAB 13:55
PROVIDERS: PCP Internal Medicine; Visit Provider Internal Medicine
DX: E03.9 Hypothyroidism, unspecified (principal)
CPT/HCPCS: 36415; 84439; 84443